=== PATIENT | male | born 1935 | race Caucasian/White ===

== ENCOUNTER 2016-05-31 05:55 | Emergency (ER) | payer OTHER, MEDICARE ==
[2016-05-31] MEDS ORDERED: Nitroglycerin 2% OINT* 1 GM PAK TOPICAL ONE (06:30)
[2016-05-31] MEDS ORDERED: Aspirin Low Dose CHEW TAB* 81 MG PO ONE (06:30)
--- NOTE | 2016-05-31 06:53 | ED ---
Lexi Obrien Matthew, scribed for Devyn Luong on 05/31/16 at 0630 . HPI Chest Pain - HPI Summary HPI Summary: A 80 y/o male presents to the ED with mid-sternal chest pain since 18:00 yesterday. The pain is described as dull. No Hx of ulcer. He describes the pain similar to his GERD, but persistent. The patient denies nausea, vomiting, dizziness, SOB, diaphoresis, and pedal edema. His last stress test was a couple of years ago and returned normal. The pain is unaffected by exertion. - History of Current Complaint Chief Complaint: EDChestPainROMI Time Seen by Provider: 05/31/16 06:15 Hx Obtained From: Patient Onset/Duration: Started Hours Ago, Atraumatic, Still Present Time of Onset: 18:00 Timing: Constant Initial Severity: Mild Current Severity: Mild Pain Intensity: 3 Pain Scale Used: 0-10 Numeric Chest Pain Location: Mid Sternal Chest Pain Radiates: No Character: Dull/Aching Aggravating Factor(s): Nothing Alleviating Factor(s): Nothing Associated Signs and Symptoms: Positive: Chest Pain. Negative: Dizziness, Shortness of Breath, Diaphoresis, Nausea, Vomiting, Edema - Allergy/Home Medications Allergies/Adverse Reactions: Allergies Allergy/AdvReac Type Severity Reaction Status Date / Time No Known Allergies Allergy Verified 05/31/16 05:59 Home Medications: Home Medications Pantoprazole TAB (NF) [Protonix TAB (NF)] 40 mg PO DAILY 05/31/16 [History Confirmed 05/31/16] PMH/Surg Hx/FS Hx/Imm Hx Cardiovascular History: Reports: Hx Hypertension GI History: Reports: Hx Gastroesophageal Reflux Disease Infectious Disease History: No Infectious Disease History: Denies: Traveled Outside the [place] in Last 30 Days - Family History Known Family History: Positive: Cardiac Disease - mother and father - Social History Lives: With Family Alcohol Use: None Hx Substance Use: No Substance Use Type: Reports: None Hx Tobacco Use: No Smoking Status (MU): Never Smoked Tobacco Review of Systems Constitutional: Negative Eyes: Negative ENT: Negative Positive: Chest Pain - mid-sternal Respiratory: Negative Negative: Shortness Of Breath Gastrointestinal: Negative Negative: Vomiting, Nausea Genitourinary: Negative Musculoskeletal: Negative Negative: Edema Skin: Negative Neurological: Negative Psychological: Normal All Other Systems Reviewed And Are Negative: Yes Physical Exam Triage Information Reviewed: Yes Vital Signs On Initial Exam: Initial Vitals Temp Pulse Resp BP Pulse Ox 98.7 F 71 12 130/73 96 05/31/16 05:56 05/31/16 05:56 05/31/16 05:56 05/31/16 05:56 05/31/16 05:56 Vital Signs Reviewed: Yes Appearance: Positive: Well-Appearing, No Pain Distress Skin: Positive: Warm, Skin Color Reflects Adequate Perfusion, Dry Head/Face: Positive: Normal Head/Face Inspection Eyes: Positive: EOMI, EVIN ENT: Positive: Normal ENT inspection Neck: Positive: Supple, Nontender Respiratory/Lung Sounds: Positive: Clear to Auscultation, Breath Sounds Present Cardiovascular: Positive: RRR, Pulses are Symmetrical in both Upper and Lower Extremities Abdomen Description: Positive: Nontender, Soft Bowel Sounds: Positive: Present Musculoskeletal: Positive: Normal, Strength/ROM Intact Neurological: Positive: Normal, Sensory/Motor Intact, Alert, Oriented to Person Place, Time Psychiatric: Positive: Normal, Affect/Mood Appropriate Diagnostics - Vital Signs Vital Signs Temp Pulse Resp BP Pulse Ox 05/31/16 05:56 98.7 F 71 12 130/73 96 - Laboratory Lab Statement: Any lab studies that have been ordered have been reviewed, and results considered in the medical decision making process. - EKG 06:33 Cardiac Rate: Bradycardia - 57 bpm EKG Rhythm: Sinus Bradycardia EKG Interpretation: No Acute Changes Chest Pain Course/Dx - Diagnoses Provider Diagnoses: Chest pain Discharge - Discharge Plan Condition: Stable Disposition: OTHER Discharge Disposition Comment: The patient is signed out to Dr. Faria pending lab results and CXR Referrals: Antony Diaz MD [Primary Care Provider] - The documentation as recorded by the Lexi farr Matthew accurately reflects the service I personally performed and the decisions made by , Devyn Luong.
[2016-05-31 07:06] LABS: Hematocrit 39 % (42-52); Hemoglobin 13.7 g/dl (14.0-18.0); Mean Corpuscular HGB Conc 35 g/dl (31-36); Mean Corpuscular Hemoglobin 27 pg (27-31); Mean Corpuscular Volume 77 fL (80-94); Mean Platelet Volume 9 um3 (7.4-10.4); Red Blood Count 5.08 10^6/ul (4.0-5.4); Red Cell Distribution Width 14 % (10.5-15); White Blood Count 9.2 10^3/ul (3.5-10.8)
[2016-05-31 07:32] LABS: BUN/Creatinine Ratio 24.2 (8-20); Calcium 9.2 mg/dL (8.6-10.3); EGFR African American 103.4 (>60); EGFR Non-African American 80.4 (>60); Globulin 3.1 g/dL (2-4); Magnesium 2.1 mg/dL (1.9-2.7); Potassium 3.4 mmol/L (3.5-5.0); Total Bilirubin 0.7 mg/dL (0.2-1.0); Total Protein 7.1 g/dL (6.4-8.9)
--- NOTE | 2016-05-31 08:19 | RAD ---
INDICATION: Chest pain COMPARISON: September 29, 2010 TECHNIQUE: An AP portable view obtained at 0655 hours is submitted. FINDINGS: Bones/Soft Tissues: There are no acute bony findings. Cardiomediastinal: The cardiomediastinal silhouette is normal. Lungs: There are no infiltrates. Pleura: There are no pleural effusions. Other: None IMPRESSION: NO ACTIVE DISEASE.
[2016-05-31] MEDS ORDERED: Pantoprazole TAB (NF) 40 MG TAB PO ONE (09:25)
[2016-05-31 11:26] VITALS: BP 130/72
--- NOTE | 2016-05-31 17:20 | ED ---
I, Derrick Curran, scribed for Bill Faria MD on 05/31/16 at 0822 . Progress - Progress Note Progress Note: 80yo male c/o mid sternal dullCP since last evening after having 2 large meals earlier yesterday. Pt has GERD and states that his symptoms are like his typical GERD episode. Pt denies dizziness, N/V, fever or chills. Pt took tums and other GERD relieving meds and saw now relief, which is what brought him to the ED. Sign out pt from Dr. Luong. Pt came into ED c/o CP. Waiting for CXR results. I extensively discussed with the patient the benefits and risk of leaving AMA. I also discussed the alternatives to leaving AMA, however, the patient still insist to leave the hospital AMA.. The primary nurse and the charge nurse also strongly recommended that the patient should not leave AMA. Patient understands the risk of leaving AMA, which includes but is not restricted to . Patient is Alert and oriented times three and patient verbalizes understanding. Patient has full capacity and is cognitively intact. Patient signed the AMA form. Patient was also advised to return to ED if he changes his mind or if the symptoms worsen or other symptoms appear. Patient understands and agrees. - EKG/XRAY/CT XRAY: chest Xray Comments: CXR: NAD. Course/Dx - Course Course Of Treatment: s/o from Dr. Luong. 80yo male c/o CP and epigastric pain. Blood work shows mild anemia and hypokalemia with 3.4. Troponin is 0.00. CXR reads NAD. EKG@0633 is sinus bradycardia 57bpm with no ST elevation. No significant difference compared to EKG on 01/22/04. Second troponin also 0.00 but given the pts PMHx I recommended admission however pt refused admission. Explained the risks and benefits of each option and pt chose to leave AMA. Pt will f/u with his PCP tomorrow. - Diagnoses Provider Diagnoses: Chest pain The documentation as recorded by the Magdy farr Benjamin accurately reflects the service I personally performed and the decisions made by me, Bill Faria MD.
== END 2016-05-31 11:24 | disposition home or self-care (01) ==
LOC: ED 05:55
DX: R07.9 Chest pain, unspecified (principal)
CPT/HCPCS: 36415; 71010; 80053; 83735; 83880; 84484; 85025; 85610; 85730; 93005; 99283; A9270-GY

== ENCOUNTER 2018-10-12 08:49 | Emergency (ER) | payer MEDICARE ==
--- NOTE | 2018-10-12 09:22 | ED ---
Dizziness - HPI Summary HPI Summary: This patient is a 82 year old M presenting to [facility] accompanied by his via EMS with a chief complaint of dizziness since 07 today. Pt states he went on a walk and became dizzy and lost his balance when he turned his head to the left. He notes that with some difficulty, he was able to walk home. He notes his balance has not been the same during the past couple of weeks and has even fell a few times per . Pt had a previous TIA several years ago. Pt denies hx of vertigo. Pt has hearing aids. Per EMS, pt has GCS 15 , does not use drugs or alcohol, and had a negative stroke test. He denies hx of strokes or high cholesterol, but has hx of HTN, family hx of heart problems, and a pacemaker. Symptoms aggravated by movement. Symptoms alleviated by rest. Patient reports weakness, nausea. Pt denies any fever, chills, erythema of eyes , sore throat, CP, SOB, cough, abdominal pain, vomiting, dysuria, hematuria, myalgia, edema, rash, neck pain, trouble speaking, tingling/numbness, muffled hearing, congestion, or dizziness. - History Of Current Complaint Stated Complaint: DIZZINESS PER EMS Time Seen by Provider: 10/12/18 08:53 Hx Obtained From: Patient, Family/Service Center Technician - , EMS Onset/Duration: Still Present, Suddenly Timing: Hours - 2 Character: Room Spinning, Weak, Dizzy Aggravating Factor(s): Other - movement Alleviating Factor(s): Rest Associated Signs And Symptoms: Positive: Nausea, Other: - positive - weakness. negative - erythema of eyes, sore throat, cough, abdominal pain, dysuria, hematuria, myalgia, edema, rash, neck pain, , tingling/numbness, muffled hearing , congestion, or dizziness.. Negative: Vomiting, Chest Pain, SOB, Fever, Chills , Slurred Speech - Allergies/Home Medications Allergies/Adverse Reactions: Allergies Allergy/AdvReac Type Severity Reaction Status Date / Time No Known Allergies Allergy Verified 10/12/18 09:15 Home Medications: Home Medications Atorvastatin* [Lipitor*] 20 mg PO DAILY 10/12/18 [History Confirmed 10/12/18] Vardenafil (NF) [Levitra (NF)] 10 mg PO DAILY 10/12/18 [History Confirmed ] PMH/Surg Hx/FS Hx/Imm Hx Previously Healthy: No Cardiovascular History: Reports: Hx Hypertension - ON MEDICATION Denies: Hx Pacemaker/ICD GI History: Reports: Hx Gastroesophageal Reflux Disease Sensory History: Reports: Hx Hearing Aid Psychiatric History: Denies: Hx Panic Disorder - Cancer History Cancer Type, Location and Year: prostate - Surgical History Surgical History: Yes Surgery Procedure, Year, and Place: PROSTATECTOMY. EYE- MUSCLE FOR LAZY-EYE Infectious Disease History: No Infectious Disease History: Denies: Traveled Outside the [place] in Last 30 Days - Family History Known Family History: Positive: Cardiac Disease - mother and father - Social History Alcohol Use: None Hx Substance Use: No Substance Use Type: Reports: None Hx Tobacco Use: No Smoking Status (MU): Never Smoked Tobacco Do You Chew or Dip Tobacco: No Have You Chewed or Dipped Tobacco in the LAST YEAR: No Have You Smoked in the Last Year: No Review of Systems Negative: Fever, Chills Negative: Erythema ENT: Other - negative - trouble speaking, muffled hearing, congestion Negative: Sore Throat Negative: Chest Pain Negative: Shortness Of Breath, Cough Positive: Nausea. Negative: Abdominal Pain, Vomiting Negative: dysuria, hematuria Musculoskeletal: Other - negative - neck pain Negative: Myalgia, Edema Negative: Rash Neurological: Other - positive - dizziness Positive: Weakness. Negative: Numbness All Other Systems Reviewed And Are Negative: Yes Physical Exam - Summary Physical Exam Summary: Constitutional: Well-developed, Well-nourished, Alert. (-) Distressed Skin: Warm, Dry HENT: Normocephalic; Atraumatic Eyes: Conjunctiva normal Neck: Musculoskeletal ROM normal neck. (-) JVD, (-) Stridor, (-) Tracheal deviation Cardio: Rhythm regular, rate normal, Heart sounds normal; Intact distal pulses; The pedal pulses are 2+ and symmetric. Radial pulses are 2+ and symmetric. (-) Murmur Pulmonary/Chest wall: Effort normal. (-) Respiratory distress, (-) Wheezes, (-) Rales Abd: Soft. (-) Tenderness, (-) Distension, (-) Guarding, (-) Rebound Musculoskeletal: (-) Edema Lymph: (-) Cervical adenopathy Neuro: Alert, Oriented x3, Strength normal, Romberg negative, gait is steady, [place]val[place]-Hallpike test and supine roll are negative Psych: Mood and affect Normal Triage Information Reviewed: Yes Vital Signs On Initial Exam: Initial Vitals Temp Pulse Resp BP Pulse Ox 97.3 F 54 16 133/82 97 10/12/18 08:58 10/12/18 08:58 10/12/18 08:58 10/12/18 08:58 10/12/18 08:58 Vital Signs Reviewed: Yes Diagnostics - Vital Signs Vital Signs Temp Pulse Resp BP Pulse Ox 10/12/18 08:58 97.3 F 54 16 133/82 97 - Laboratory Result Diagrams: 10/12/18 09:23 10/12/18 09:23 Lab Statement: Any lab studies that have been ordered have been reviewed, and results considered in the medical decision making process. - Radiology CXR Radiology Interpretation Completed By: Radiologist Summary of Radiographic Findings: IMPRESSION: NO EVIDENCE FOR ACTIVE CARDIOPULMONARY DISEASE. These findings were reviewed by Dr. Castro. - CT Head CTA CT Interpretation Completed By: Radiologist Summary of CT Findings: IMPRESSION: 1. No acute occlusive disease, significant stenosis or aneurysm. 2. 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 and 0.4 cm in diameter. The aneurysmal sac is not lobulated. Follow-up imaging is. recommended to ensure stability. These findings were reviewed by Dr. Castro. Brain CT Interpretation Completed By: Radiologist Summary of CT Findings: IMPRESSION: 1. NO EVIDENCE FOR GROSS ACUTE INFARCT, MASS EFFECT OR HEMORRHAGE. 2. ATROPHY AND FINDINGS SUGGESTIVE OF MILD CHRONIC SMALL VESSEL ISCHEMIC CHANGES. These findings were reviewed by Dr. Castro. - EKG 0931 Cardiac Rate: Bradycardia - 53 BPM EKG Rhythm: Sinus Bradycardia Summary of EKG Findings: 53 BPM, sinus bradycardia, no STEMI Re-Evaluation - Re-Evaluation First Eval Re-Evaluation Time: 13:02 Change: Improved Comment: Pt ambulated twice around the ED and feels normal. He understands the possibility of TIA and need for further outpatient workup. Dizzy Course/Dx - Course Course Of Treatment: This patient is a 82 year old M presenting to [facility] accompanied by his via EMS with a chief complaint of dizziness since 729 today. Pt states he went on a walk and became dizzy and lost his balance when he turned his head to the left. He notes that with some difficulty, he was able to walk home. He notes his balance has not been the same during the past couple of weeks and has even fell a few times per . Pt had a previous TIA several years ago. Pt denies hx of vertigo. Pt has hearing aids. Per EMS, pt has GCS 15 , does not use drugs or alcohol, and had a negative stroke test. He denies hx of strokes or high cholesterol, but has hx of HTN, family hx of heart problems, and a pacemaker. Symptoms aggravated by movement. Symptoms alleviated by rest. Patient reports weakness, nausea. Pt denies any fever, chills, erythema of eyes , sore throat, CP, SOB, cough, abdominal pain, vomiting, dysuria, hematuria, myalgia, edema, rash, neck pain, trouble speaking, tingling/numbness, muffled hearing, congestion, or dizziness. Physical exam shows Romberg test negative, gait is steady, [place]val[place]-Hallpike test and supine roll are negative. Lab results show Hct 41, glucose 107. EKG at 0931 shows 53 BPM, sinus bradycardia, no STEMI. Head CTA IMPRESSION: 1. No acute occlusive disease, significant stenosis or aneurysm. 2. 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 and 0.4 cm in diameter. The aneurysmal sac is not lobulated. Follow-up imaging is. recommended to ensure stability. Brain CT IMPRESSION: 1. NO EVIDENCE FOR GROSS ACUTE INFARCT, MASS EFFECT OR HEMORRHAGE. 2. ATROPHY AND FINDINGS SUGGESTIVE OF MILD CHRONIC SMALL VESSEL ISCHEMIC CHANGES. CXR IMPRESSION: NO EVIDENCE FOR ACTIVE CARDIOPULMONARY DISEASE. During ED course, pt was given fluids. Dr. Castro was unable to elicit vertigo or nystagmus. Pt has risk factors for cerebrovascular disease. Rule out posterior circulation stroke. Dx is vertigo and pseudoaneurysm of carotid artery. Pt is agreeable to discharge. Pt was told to follow up with his primary care provider within 2-3 days and to return to the ED for any new or worsening symptoms. - Diagnoses Differential Diagnosis/HQI/PQRI: Transient Ischemic Attack - dehydration, peripheral vertigo Provider Diagnoses: Vertigo, Pseudoaneurysm of carotid artery During the Visit The Following Alert/Code Occurred: Code Maradiaga - at 0927 - Provider Notifications Discussed Care Of Patient With: Estela Gamboa Time Discussed With Above Provider: 11:25 Instructed by Provider To: Other - Dr. Castro discusses pt's case with Dr. Gamboa, hospitalist, who agrees to admit pt. Discharge - Sign-Out/Discharge Documenting (check all that apply): Patient Departure - discharge Patient Received Moderate/Deep Sedation with Procedure: No - Discharge Plan Condition: Stable Disposition: HOME Patient Education Materials: Vertigo (ED), Pseudoaneurysm (ED) Referrals: Hu Lou DO [Primary Care Provider] - 2 Days Additional Instructions: Follow up with your primary care provider within 2-3 days. Return to the ED for any new or worsening symptoms. - Attestation Statements Document Initiated by Scribe: Yes Documenting Scribe: Guanaco Curran Provider For Whom Scribe is Documenting (Include Credential): Dr. Collin Castro MD Scribe Attestation: Guanaco Obrien, scribed for Dr. Collin Castro MD on 10/12/18 at 1306. Status of Scribe Document: Ready
[2018-10-12 09:33] LABS: ABS Eosinophils 0.2 10^3/ul (0-0.6); ABS Lymphocytes 1.4 10^3/ul (1.0-4.8); ABS Monocytes 0.6 10^3/ul (0-0.8); ABS Neutrophils 4.9 10^3/ul (1.5-7.7); Eosinophil % 2.7 %; Hematocrit 41 % (42-52); Hemoglobin 14.3 g/dL (14.0-18.0); Lymphocyte % 19.6 %; Mean Corpuscular HGB Conc 35 g/dL (31-36); Mean Corpuscular Hemoglobin 28 pg (27-31); Mean Corpuscular Volume 81 fL (80-94); Mean Platelet Volume 8.9 fL (7.4-10.4); Platelet Count 177 10^3/uL (150-450); Red Blood Count 5.04 10^6 /uL (4.18-5.48); Red Cell Distribution Width 14 % (10-15); White Blood Count 7.1 10^3/uL (3.5-10.8)
[2018-10-12] MEDS ORDERED: Iodixanol* (CONTRAST) 320 MG/ML 100 ML SDV IV ONE (09:47)
[2018-10-12] MEDS ORDERED: NS 0.9% 1000 ML** 1,000 ML IV ONE (10:00)
[2018-10-12 10:06] LABS: Albumin/Globulin Ratio 1.4 (1-3); BUN/Creatinine Ratio 18.5 (8-20); Calcium 8.9 mg/dL (8.6-10.3); EGFR African American 79.4 (>60); EGFR Non-African American 65.6 (>60); Globulin 2.8 g/dL (2-4); HDL Cholesterol 32.4 mg/dL; Potassium 3.9 mmol/L (3.5-5.0); Total Bilirubin 0.8 mg/dL (0.2-1.0); Total Protein 6.8 g/dL (6.4-8.9)
[2018-10-12] MEDS: NS 0.9% 1000 ML** 1,000 ML IV ONE ×2 (10:29→12:49)
[2018-10-12 10:36] LABS: Urine Appearance Clear; Urine Bilirubin Negative (Negative); Urine Blood Negative (Negative); Urine Color Straw; Urine Glucose Negative (Negative); Urine Ketones Negative (Negative); Urine Nitrite Negative (Negative); Urine Protein Negative (Negative); Urine Specific Gravity 1.023 (1.010-1.030); Urine Urobilinogen Negative (Negative)
[2018-10-12 10:44] LABS: Activated Partial Thrombo Time 28.2 seconds (26.0-38.0); INR 0.95 (0.82-1.09)
--- NOTE | 2018-10-12 12:01 | CONS ---
NEUROLOGY CONSULTATION NOTE: DATE OF CONSULT: 10/12/18 - EMERGENCY DEPT CONSULTING PROVIDER: Dr. aCstro. REASON FOR CONSULT: Activated code villanueva to evaluate the patient for acute stroke. CHIEF COMPLAINT: Dizziness. HISTORY OF PRESENT ILLNESS: Mr. Laith Ricketts is a pleasant 82-year-old right- handed man who is retired, who developed a sudden onset vertigo lasting for 15 minutes after turning his head towards the left. The patient usually walks and jogs every morning for approximately 1-1/2 miles. He did not have breakfast this morning. According to his , he does not typically drink enough fluids. He completed approximately 1-1/4 of a mile when suddenly he looked towards the left side and developed a spinning sensation. Following that, he developed nausea. He stated that he looked back forward and the symptoms did not go away. He started walking back to his home but felt unsteady and off balance. The symptoms resolved when EMS arrived. However, the patient does not feel well and feels lightheaded. He denies any current vertigo. He denied any visual disturbance, slurred speech, focal weakness, ptosis, double vision, swallowing difficulty, or impairment in his bowel or bladder functions. Last known well time 7:25. Symptoms onset 7:30. Code villanueva activated at 9:30. NIH stroke scale at 9:35 was 0. TPA decision at 9:45. The patient is not a candidate for IV TPA due to NIH stroke scale of 0 and the low suspicion for stroke. CTA did not show any evidence of large vessel occlusion. There is mild multilevel cervical spinal stenosis on the head and neck CTA. Of note, the patient stated that he had an episode of left-sided weakness a few years back. He had an MRI of the brain at that time that did not show any evidence of stroke. This was in 2011. The patient stated that he recovered from the deficits. He was not placed on any blood thinners or antithrombotic agents. PAST MEDICAL HISTORY: Hypertension, cataract surgery, extraocular muscle fixation, and prostate surgery. The patient has a history of GERD and dyslipidemia. MEDICATIONS: 1. Amlodipine 5 mg daily. 2. Aspirin 81 mg p.o. daily. 3. Pantoprazole 40 mg p.o. daily. 4. Atorvastatin 20 mg p.o. daily. 5. Vardenafil 10 mg p.o. daily. FAMILY HISTORY: No family history of stroke or seizures. SOCIAL HISTORY: The patient is . He has 2 sons. He denied any history of tobacco, alcohol, or drug use. REVIEW OF SYSTEMS: A 14-point review of systems was obtained and otherwise negative except for what is mentioned in the HPI. PHYSICAL EXAMINATION: Vitals: Temperature of 97.3, pulse of 54, respiratory rate of 16, oxygen saturation of 97, blood pressure of 133/82. General: Well- nourished, well-developed man who appears younger than stated age. Head: Atraumatic, normocephalic. Eyes: Conjunctivae/corneas are clear. Neck is supple and symmetric with no carotid bruits. No nuchal rigidity. HINT examination was positive towards the left. Cardiovascular: Regular rate and rhythm with normal S1, S2. Respiratory: Clear to auscultation bilaterally with no wheezing or rhonchi. Extremities: No hammertoes or high arches. Skin : No skin lesions or laceration. Psych: Affect is broad. Normal mood. He is easy to establish a rapport. Neurological Examination: Mental Status: Awake, alert, oriented to person, place, time, and general circumstances. Speech and language including expression, comprehension, and repetition were assessed and found to be intact. Cranial Nerves: Pupils equal, round, and reactive to light. Extraocular muscles are intact. Confrontation testing is normal. There is slight end-gaze nystagmus towards the left but resolved. Normal sensation to light touch bilaterally. No facial asymmetry. Tongue is midline and symmetric with no atrophy or fasciculation. Motor Examination: Normal tone and bulk throughout. He has got slight hypertrophy in the trapezius muscle bilaterally. He has had 5/5 strength in the upper and lower extremities. Reflexes 2+ in the biceps, triceps, brachioradialis, and knees bilaterally, 1+ at the ankles bilaterally. Vibratory sensation is intact measured at 10 seconds on the right and 11 seconds on the left. Proprioception is intact. [id number] and [id number]-ji-[id number] testing is normal except mild dysmetria on the first try on [id number] on the left, but otherwise that all corrected with repeated attempts. Gait: Normal stance, no ataxia, normal posture, but the patient does report feeling slight lightheaded when he stands up. No vertigo. LABS/IMAGING AND OTHER DIAGNOSTIC TESTING: WBC of 7.1, hemoglobin of 14.3, hematocrit of 41, platelet count of 177. CT head without contrast was personally reviewed and showed no evidence of acute intracranial abnormality. No hemorrhage or stroke. CTA head and neck showed an anatomical variant where the TOGGLER comes out of the anterior circulation on the left. Basal arteries widely patent. Again, there is mild multilevel cervical spinal narrowing in the spinal canal. ASSESSMENT: Mr. Laith Ricketts is an 82-year-old with a history of dyslipidemia and hypertension who presented with a sudden onset vertigo triggered by position that resolved within 15 minutes. 1. Vertigo, off balance -- the vertigo has resolved, but the patient continues to complain of feeling off balance. The differential diagnosis here is most likely a peripheral vertigo such as benign paroxysmal peripheral vertigo given the triggering factor of head rotation exacerbated or triggered his vertigo and that resolved within minutes. He did have a positive HINT examination towards the left side, which also confirms a peripheral process related to the vertigo. However, it is reasonable to evaluate for possible transient ischemic attack given the patient's age and risk factors. However, the patient would prefer to go home since the vertigo has resolved. Recommendation: We will start out by giving the patient IV fluids to help with his hydration, since he does not drink enough fluids. He also feels lightheaded when he stands up, and had exercised this morning by running/ jogging 1-1/2 miles. If his symptoms completely resolve, this includes the lightheadedness since the vertigo has already resolved, then it is reasonable to discharge him with the recommendation to immediately come back to the ER if he has any new neurological symptoms. I educated and counseled the patient regarding the importance of staying hydrated, especially during the summertime. We discussed the care with the patient and his family. There is no indication for meclizine or any other medications at this time. I would not change his antiplatelet therapy and keep him on aspirin 81 mg daily since the suspicion for stroke or transient ischemic attack is low. 2. In regards to his cervical spine disease, I recommend the patient to undergo an outpatient MRI of the cervical spine to evaluate for cervical spondylosis. Reassuringly, he does not have any myelopathy on examination. Neuro checks every 1 hour for the next 4 hours. Ordered normal saline 1000 mL to infuse within an hour. Please perform a dysphagia screen, and if he passes, give the patient some fluids via p.o. and breakfast. I discussed the case with Dr. Castro and our sourcing coordinator, Rosa Elena. Critical care time 35 minutes, of which the patient was emergently assessed for acute stroke for which we have excluded at this time. I will follow up with the patient after he receives IV fluids. [id number] #: [id number] MTDD
[2018-10-12 13:25] LABS: TSH (Thyroid Stimulating Horm) 3.14 mcIU/mL (0.34-5.60)
[2018-10-12 13:28] VITALS: BP 171/93
--- NOTE | 2018-10-12 15:35 | CONS ---
CONSULTATION REPORT: DATE OF CONSULT: 10/12/18 - EMERGENCY DEPT PRIMARY CARE PROVIDER: Dr. Lou. ATTENDING PHYSICIAN: Dr. Estela Johnson (dictated by Carolann Retana, SCOTTY). CHIEF COMPLAINT: Dizziness. HISTORY OF PRESENT ILLNESS/HOSPITAL COURSE: Mr. Ricketts is an 82-year-old male with a past medical history significant for hypertension, GERD, and TIA who presented to the emergency department today with his reporting dizziness since 729. Please see ED provider documentation by Dr. Castro for complete summary of events leading up to presentation, but in short, the patient was on a walk, turned his head quickly, and felt dizziness which continued; therefore, presented to the emergency room. While in the emergency room, the patient was evaluated by Dr. Castro, ED provider, and also Dr. Smiley. The patient had imaging including a brain CT, which revealed no evidence of gross acute infarct , mass effect, or hemorrhage. 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 Followup imaging was recommended for this. Given the patient's presentation, the hospitalists were asked to evaluate for admission. I evaluated the patient in room 19; and, upon my entrance in the room, the patient reports he does not want to be admitted and reports he was told by Dr. Smiley that he will be discharged. He reports he would like to speak with Dr. Smiley before proceeding with my physical exam. Dr. Smiley was contacted and reported he would be presenting to the emergency room to reevaluate the patient. The patient reports he feels much better after IV fluids and the dizziness has resolved. We discussed hospitalization and I encouraged the patient to stay for further workup, but he has decided against this. Later, Dr. Smiley reevaluated the patient and reports that he is stable for discharge and he communicated this to Dr. Castro, who will then be discharging the patient. TIME SPENT: Approximately 35 minutes were spent on this consultation, greater than half the time was spent [id number] with the patient discussing history, performing my physical, and discussing plan of care. This plan has also been discussed with my attending, Dr. Johnson, who is in agreement with my plan of care. CAROLANN RETANA, CONSTRUCTION MGR [id number]/[facility] #: [id number] [facility] CENTERJuliet
--- NOTE | 2018-10-13 08:54 | CONSULT ---
Consult Consult: Spoke to Mr. Ricketts today (10/13/2018) to update him regarding his positive orthostatic vitals noted yesterday. He has an appointment to see his PCP today.
== END 2018-10-12 13:27 | disposition home or self-care (01) ==
LOC: ED 08:49
DX: R42 Dizziness and giddiness (principal); I72.0 Aneurysm of carotid artery; I10 Essential (primary) hypertension; K21.9 Gastro-esophageal reflux disease without esophagitis; Z79.899 Other long term (current) drug therapy
CPT/HCPCS: 36415; 70450; 70496; 70498; 71045; 80053; 80061; 81003; 82607; 83605; 84443; 84484; 85025; 85610; 85730; 93005; 96360; 96361; 99285; Q9967